=== PATIENT | female | born 1990 | race Two or more races ===

== ENCOUNTER 2023-03-20 20:52 | Inpatient (IN) | payer SELFPAY ==
[2023-03-20] MEDS: Lactated Ringers 1,000 ML IV SCH (22:40)
[2023-03-20] MEDS ORDERED: Methylergonovine 0.2 MG/1 ML Amp IM PRN (22:59)
[2023-03-20] MEDS ORDERED: Sodium Chloride 0.9% 20 ML SDV IV PRN (22:59)
[2023-03-20] MEDS ORDERED: Ondansetron 4 MG/2 ML SDV IVPUSH PRN (22:59)
[2023-03-20] MEDS ORDERED: Carboprost Tromethamine 250 MCG/1 mL Vial IM PRN (22:59)
[2023-03-20] MEDS ORDERED: Misoprostol 200 MCG Tab PO PRN (22:59)
[2023-03-20] MEDS ORDERED: Tranexamic Acid 1,000 MG in Sodium Chloride 0.9% 100 ML IV PRN (22:59)
[2023-03-20] MEDS ORDERED: Terbutaline 1 MG/ML SDV SUBCUT PRN (22:59)
[2023-03-20] MEDS ORDERED: Lidocaine 1% 50 ML MDV INJECT PRN (22:59)
[2023-03-20] MEDS ORDERED: Sodium Chloride 0.9% 10 ML Syringe FLUSH PRN (22:59)
[2023-03-20] MEDS ORDERED: Sodium Chloride 0.9% 2.5 ML Syringe FLUSH PRN (22:59)
[2023-03-20] MEDS ORDERED: Misoprostol 25 MCG (1/4 of 100 MCG) Tab VAG PRN ×2 (22:59)
[2023-03-20] MEDS ORDERED: Water For Irrigation,Sterile 1,000 ML Container IRR PRN (22:59)
[2023-03-20] MEDS ORDERED: Butorphanol 1 MG/ML SDV IVPUSH PRN (22:59)
[2023-03-20] MEDS ORDERED: Oxytocin/0.9 % Sodium Chloride 30 UNIT/500 ML BAG IV SCH ×2 (23:00)
[2023-03-20 23:27] LABS: HEMATOCRIT 35.5 % (36.0-46.0); HEMOGLOBIN 12.4 g/dL (12.0-16.0); MEAN CORPUSCULAR HEMOGLOBIN 32.7 pg (27.0-32.0); MEAN CORPUSCULAR HGB CONC 34.9 g/dL (31.0-37.0); MEAN CORPUSCULAR VOLUME 93.7 fL (80.0-98.0); MEAN PLATELET VOLUME 9.8 fL (7.40-12.00); RED BLOOD CELL COUNT 3.79 M/uL (4.30-5.90); WHITE BLOOD CELL COUNT,WBC 5.38 K/uL (4.0-11.0)
[2023-03-21] MEDS ORDERED: Misoprostol 25 MCG (1/4 of 100 MCG) Tab PO PRN (06:00)
[2023-03-21] MEDS: Lactated Ringers 1,000 ML IV SCH ×2 (10:30→18:17)
[2023-03-21] MEDS: fentaNYL 100 MCG/2 ML SDV IVPUSH PRN ×2 (16:34→17:45)
[2023-03-21] MEDS ORDERED: ePHEDrine 50 MG/ML SDV IVPUSH PRN ×2 (18:28)
[2023-03-21] MEDS ORDERED: Phenylephrine HCl 0.5 MG/5 ML AMP IVPUSH PRN (18:28)
[2023-03-21] MEDS ORDERED: Ropivacaine HCl/PF 400 MG in Premix Bag 1 BAG EPIDUR SCH (18:30)
[2023-03-21] MEDS ORDERED: Dexmedetomidine 200 MCG/2 ML SDV ONE (18:34)
[2023-03-21] MEDS ORDERED: Lidocaine 2% with EPINEPHrine 1:200,000 20 ML SDV ONE (18:35)
[2023-03-21] MEDS ORDERED: Witch Hazel Medicated Pads 40/Jar TOP PRN (19:32)
[2023-03-21] MEDS ORDERED: Acetaminophen 500 MG Tab PO PRN ×2 (19:32)
[2023-03-21] MEDS ORDERED: Lanolin 100% Cream 7 GM Tube TOP PRN (19:32)
[2023-03-21] MEDS ORDERED: Docusate Sodium 100 MG Cap PO PRN (19:32)
[2023-03-21] MEDS ORDERED: Benzocaine/Menthol 20%-0.5% Spray 78 GM Cannister TOP PRN (19:32)
[2023-03-21] MEDS ORDERED: Ibuprofen 400 MG Tab PO PRN (19:32)
[2023-03-21] MEDS ORDERED: Bisacodyl 10 MG Supp RECTAL PRN (19:32)
[2023-03-22 06:12] LABS: HEMATOCRIT 33.6 % (36.0-46.0); HEMOGLOBIN 11.7 g/dL (12.0-16.0)
[2023-03-22] MEDS: Ibuprofen 800 MG Tab PO PRN ×2 (07:10→19:57)
[2023-03-23] MEDS: Ibuprofen 800 MG Tab PO PRN (09:11)
== END 2023-03-23 15:20 | disposition home or self-care (01) | DRG 807 ==
LOC: MW.OBCHECK 20:52 → MW.OB 20:53 → MW.OBCHECK 22:59 → MW.OB 23:00 → OBSVTOIN 03-21 20:52 → MW.OB 03-22 00:10
PROVIDERS: ADMIT Obstetrics & Gynecology Obstetrics; ATTEND Obstetrics & Gynecology Obstetrics
PROC: 10E0XZZ Delivery of Products of Conception, External Approach (ICD-10-PCS; principal; 2023-03-21)
PROC: 3E0P7VZ Introduction of Hormone into Female Reproductive, Via Natural or Artificial Opening (ICD-10-PCS; 2023-03-21)
DX: O42.02 Full-term premature rupture of membranes, onset of labor within 24 hours of rupture (principal); Z37.0 Single live birth; O99.02 Anemia complicating childbirth; D50.9 Iron deficiency anemia, unspecified; Z3A.39 39 weeks gestation of pregnancy
CPT/HCPCS: 01967; 36415; 51702; 59409; 85014; 85018; 85027; 86592; 86850; 86900; 86901; A9270-GY; J2590; J3010; J3490; J7120

== ENCOUNTER 2024-05-27 12:47 | Emergency (ER) | payer SELFPAY | END 2024-05-27 16:44 | disposition home or self-care (01) | LOC: MW.ED 12:47 | DX: H00.011 Hordeolum externum right upper eyelid (principal); Z75.8 Other problems related to medical facilities and other health care | CPT/HCPCS: 99283 ==